=== PATIENT | male | born 1955 | race Two or more races ===

== ENCOUNTER 2018-01-22 09:34 | Outpatient (CLI) | payer OTHER | END 2018-01-22 09:44 | disposition home or self-care (01) | LOC: NUCLEAR 09:34 | DX: R10.13 Epigastric pain (principal) | CPT/HCPCS: 78227; A9537 ==

== ENCOUNTER 2020-12-07 07:38 | Outpatient (CLI) | payer OTHER | END 2020-12-07 07:39 | disposition home or self-care (01) | LOC: NUCLEAR 07:38 | PROVIDERS: ATTEND Internal Medicine Cardiovascular Disease | DX: R07.89 Other chest pain (principal) ==

== ENCOUNTER 2021-08-23 12:56 | Outpatient (CLI) | payer OTHER | END 2021-08-23 13:01 | disposition home or self-care (01) | LOC: NUCLEAR 12:56 | PROVIDERS: ATTEND Urology | DX: N25.9 Disorder resulting from impaired renal tubular function, unspecified (principal); C64.9 Malignant neoplasm of unspecified kidney, except renal pelvis; Z88.2 Allergy status to sulfonamides ==

== ENCOUNTER 2021-09-15 07:57 | Outpatient (CLI) | payer OTHER | END 2021-09-15 07:58 | disposition home or self-care (01) | LOC: NUCLEAR 07:57 | PROVIDERS: ATTEND Urology | DX: C64.9 Malignant neoplasm of unspecified kidney, except renal pelvis (principal); Z88.2 Allergy status to sulfonamides | CPT/HCPCS: 78306; A9503 ==

== ENCOUNTER → 2022-11-09 | Outpatient (CLI) | payer OTHER | END | disposition home or self-care (01) | LOC: NUCLEAR 07:00 | PROVIDERS: ATTEND Urology | DX: N13.30 Unspecified hydronephrosis (principal) | CPT/HCPCS: 78708; A9539 ==

== ENCOUNTER 2023-04-17 07:32 | Outpatient (CLI) | payer OTHER | END 2023-04-17 07:36 | disposition home or self-care (01) | LOC: NUCLEAR 07:32 | PROVIDERS: ATTEND Urology | DX: R07.9 Chest pain, unspecified (principal) | CPT/HCPCS: 78452; 93017; A9500 ==

== ENCOUNTER 2023-10-03 05:30 | Day surgery (SDC) | payer OTHER ==
[~2023-10-03 05:30] MED LIST: LISINOPRIL
[2023-10-03] MEDS ORDERED: ENOXAPARIN SODIUM 40 MG/0.4 ML SYRINGE SUBCUTANEO ONE (07:28)
[2023-10-03] MEDS ORDERED: BUPIVACAINE HCL/MPF 0.5% 30ML VIAL ONE (07:28)
[2023-10-03] MEDS ORDERED: CEFTRIAXONE SODIUM 2,000 MG VIAL ONE (07:29)
[2023-10-03] MEDS ORDERED: PERCOCET 5-3251 EACH PO (10:12)
[2023-10-03] MEDS ORDERED: NEURONTIN300 MG PO (10:12)
[2023-10-03] MEDS ORDERED: POLY119PG PO (10:12)
[2023-10-03] MEDS ORDERED: CELEBREX200MG PO (10:12)
[2023-10-03] MEDS ORDERED: METRONIDAZOLE/SODIUM CHLORIDE 500 MG/100 ML PIGGYBACK IV ONE (10:46)
== END 2023-10-03 16:15 | disposition home or self-care (01) ==
LOC: CIR.AMB 05:30
PROVIDERS: ATTEND Surgery
DX: K40.90 Unilateral inguinal hernia, without obstruction or gangrene, not specified as recurrent (principal); Z88.2 Allergy status to sulfonamides
CPT/HCPCS: 49650; C1781